=== PATIENT | female | born 2000 | race American Indian/Alaskan Native ===

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

== ENCOUNTER 2019-01-25 21:57 | Emergency (ER) | payer MEDICAID ==
[2019-01-25 22:06] VITALS: BP 147/88
[2019-01-25] MEDS ORDERED: Sodium Chloride 0.9% 10 ML Syringe FLUSH PRN (22:58)
[2019-01-25] MEDS ORDERED: Morphine 2 MG/ML Syringe IVPUSH ONE (22:58)
[2019-01-25] MEDS ORDERED: Sodium Chloride 0.9% 1,000 ML IV ONE (22:58)
[2019-01-25] MEDS ORDERED: Ondansetron 4 MG/2 ML SDV IV ONE (23:31)
[2019-01-25] MEDS ORDERED: Nitrofurantoin Monohydrate/Macrocrystalline 100 MG Cap PO ONE (23:46)
[2019-01-25 23:48] LABS: ANION GAP 14.7; CHLORIDE,CL 106 mmol/L (101-111); SODIUM,NA 138 mmol/L (135-145)
--- NOTE | 2019-01-25 23:50 | EDM.PDOC ---
ED HPI GENERAL MEDICAL PROBLEM - General Chief Complaint: Back Pain or Injury Stated Complaint: BACK Time Seen by Provider: 01/25/19 22:15 Source of Information: Reports: Patient, Family, RN, RN Notes Reviewed History Limitations: Reports: No Limitations - History of Present Illness INITIAL COMMENTS - FREE TEXT/NARRATIVE: Pt to ER with her mother with c/o back pain that radiates into the right flank. Patient states history of scoliosis. She states the pain began yesterday and has progressively gotten worse. She states she is currently having her menses. She denies fever, chills, N/V/D, urinary sx. Patient is crying with pain. Onset: Gradual Treatments COLLISION TECHNICIAN: Reports: Acetaminophen, NSAIDS Middle Back Pain Score (Numeric/FACES): 10 - Related Data Allergies Allergy/AdvReac Type Severity Reaction Status Date / Time No Known Allergies Allergy Verified 01/25/19 22:06 Home Meds: Home Meds Acetaminophen [Tylenol Extra Strength] 1,000 mg 01/25/19 [History] Ibuprofen 800 mg PO PRN 01/25/19 [History] Past Medical History - Past Health History Medical/Surgical History: Denies Medical/Surgical History HEENT History: Reports: Impaired Vision Other HEENT History: GLASSES Cardiovascular History: Reports: None Respiratory History: Reports: None Gastrointestinal History: Reports: None Genitourinary History: Reports: None PRICING CLERK History: Reports: None Other Musculoskeletal History: RIGHT FOOT HALLUX FRACTURE Neurological History: Reports: None Psychiatric History: Reports: None Endocrine/Metabolic History: Reports: None Hematologic History: Reports: None Immunologic History: Reports: None Oncologic (Cancer) History: Reports: None Dermatologic History: Reports: None - Past Surgical History Cardiovascular Surgical History: Reports: None Respiratory Surgical History: Reports: None Female Surgical History: Reports: None Musculoskeletal Surgical History: Reports: Other (See Below) Other Musculoskeletal Surgeries/Procedures:: bilateral hip surgery Social & Family History - Family History Family Medical History: Noncontributory Endocrine/Metabolic: Reports: Diabetes, type II Other Endocrine/Metabolic Family History: Mom and dad - Tobacco Use Smoking Status *Q: Current Every Day Smoker Years of Tobacco use: 2 Packs/Tins Daily: 0.1 Second Hand Smoke Exposure: Yes - Caffeine Use Caffeine Use: Reports: Tea Other Caffeine Use: 2 cans pop /day - Recreational Drug Use Recreational Drug Use: No ED ROS GENERAL - Review of Systems Review Of Systems: ROS reveals no pertinent complaints other than HPI. ED EXAM, RENAL/ - Physical Exam Exam: See Below Exam Limited By: No Limitations General Appearance: Alert, WD/WN, Moderate Distress Eye Exam: Bilateral Eye: EOMI, Normal Inspection Ears: Normal External Exam, Hearing Grossly Normal Nose: Normal Inspection Throat/Mouth: Normal Inspection, Normal Voice, No Airway Compromise Head: Atraumatic, Normocephalic Neck: Normal Inspection, Supple, Non-Tender, Full Range of Motion Respiratory/Chest: No Respiratory Distress, Lungs Clear, Normal Breath Sounds, No Accessory Muscle Use, Chest Non-Tender Cardiovascular: Normal Peripheral Pulses, Regular Rate, Rhythm, No Edema, No Gallop, No JVD, No Murmur, No Rub GI/Abdominal: Normal Bowel Sounds, Soft, Non-Tender (Female) Exam: Deferred Rectal (Female) Exam: Deferred Back Exam: Normal Inspection, CVA Tenderness (R), Decreased Range of Motion Extremities: Normal Inspection, Normal Range of Motion, Non-Tender, Normal Capillary Refill, No Pedal Edema Neurological: Alert, Oriented, CN II-XII Intact, Normal Cognition, Normal Gait, Normal Reflexes, No Motor/Sensory Deficits Psychiatric: Normal Mood, Flat Affect, Tearful Skin Exam: Warm, Dry, Intact, Normal Color, No Rash Lymphatic: No Adenopathy Course - Vital Signs Last Recorded V/S: Last Vital Signs Temp 99.2 F 01/25/19 22:02 Pulse 104 H 01/25/19 22:02 Resp 20 01/25/19 22:02 BP 147/88 H 01/25/19 22:02 Pulse Ox 99 01/25/19 22:02 - Orders/Labs/Meds Orders: Active Orders 24 hr Category Date Time Status Peripheral IV Care [RC] . DIRECTED Care 01/25/19 22:58 Active CULTURE URINE [RM] Stat Lab 01/25/19 22:00 Received Peripheral IV Insertion Adult [OM.PC] Stat Oth 01/25/19 22:58 Ordered Labs: Laboratory Tests 01/25/19 01/25/19 01/25/19 Range/Units 22:00 22:00 23:15 WBC 10.1 H (5.0-10.0) 10^3/uL RBC 4.60 (4.2-5.4) 10^6/uL Hgb 8.3 L (12.0-16.0) g/dL Hct 28.4 L (37.0-47.0) % MCV 61.7 L D (80-100) fL MCH 18.0 L (27.0-34.0) pg MCHC 29.2 L (33.0-35.0) g/dL Plt Count 652 H D (150-450) 10^3/uL Neut % (Auto) 65.0 (42.2-75.2) % Lymph % (Auto) 24.2 (20.5-50.1) % Richardson % (Auto) 6.6 (2-8) % Eos % (Auto) 3.5 H (1.0-3.0) % Baso % (Auto) 0.7 (0.0-1.0) % Sodium (135-145) mmol/L Potassium (3.6-5.0) mmol/L Chloride (101-111) mmol/L Carbon Dioxide (21.0-31.0) mmol/L Anion Gap BUN (7-18) mg/dL Creatinine (0.6-1.3) mg/dL Est Cr Clr Drug Dosing mL/min Estimated GFR (MDRD) BUN/Creatinine Ratio Glucose (74-105) mg/dL Calcium (8.4-10.2) mg/dl Total Bilirubin (0.2-1.0) mg/dL AST (10-42) IU/L ALT (10-60) IU/L Alkaline Phosphatase (42-121) IU/L Total Protein (6.7-8.2) g/dl Albumin (3.2-5.5) g/dl Globulin Albumin/Globulin Ratio Urine Color Red (YELLOW) Urine Appearance Cloudy (CLEAR) Urine pH 5.5 (5.0-9.0) Ur Specific [place] 1.025 (1.005-1.030) Urine Protein >=300 H (NEGATIVE) Urine Glucose (UA) Negative (NEGATIVE) Urine Ketones Trace H (NEGATIVE) Urine Occult Blood Large H (NEGATIVE) Urine Nitrite Positive H (NEGATIVE) Urine Bilirubin Small H (NEGATIVE) Urine Urobilinogen 1.0 (0.2-1.0) mg/dL Ur Leukocyte Esterase Trace H (NEGATIVE) Urine RBC Packed H /HPF Urine WBC 0-5 (0-5/HPF) /HPF Ur Epithelial Cells Few /HPF Urine Bacteria Few (0-FEW/HPF) /HPF Urine Opiates Screen Negative (NEGATIVE) Ur Oxycodone Screen Negative (NEGATIVE) Urine Methadone Screen Negative (NEGATIVE) Ur Barbiturates Screen Negative (NEGATIVE) U Tricyclic Antidepress Negative (NEGATIVE) Ur Phencyclidine Scrn Negative (NEGATIVE) Ur Amphetamine Screen Negative (NEGATIVE) U Methamphetamines Scrn Negative (NEGATIVE) Urine MDMA Screen Negative (NEGATIVE) U Benzodiazepines Scrn Negative (NEGATIVE) Urine Cocaine Screen Negative (NEGATIVE) U Marijuana (THC) Screen Negative (NEGATIVE) 01/25/19 Range/Units 23:15 WBC (5.0-10.0) 10^3/uL RBC (4.2-5.4) 10^6/uL Hgb (12.0-16.0) g/dL Hct (37.0-47.0) % MCV (80-100) fL MCH (27.0-34.0) pg MCHC (33.0-35.0) g/dL Plt Count (150-450) 10^3/uL Neut % (Auto) (42.2-75.2) % Lymph % (Auto) (20.5-50.1) % Richardson % (Auto) (2-8) % Eos % (Auto) (1.0-3.0) % Baso % (Auto) (0.0-1.0) % Sodium 138 (135-145) mmol/L Potassium 3.7 (3.6-5.0) mmol/L Chloride 106 (101-111) mmol/L Carbon Dioxide 21.0 (21.0-31.0) mmol/L Anion Gap 14.7 BUN 16 (7-18) mg/dL Creatinine 0.7 (0.6-1.3) mg/dL Est Cr Clr Drug Dosing 144.48 mL/min Estimated GFR (MDRD) > 60 BUN/Creatinine Ratio 22.85 Glucose 97 (74-105) mg/dL Calcium 9.1 (8.4-10.2) mg/dl Total Bilirubin 0.7 (0.2-1.0) mg/dL AST 34 (10-42) IU/L ALT 34 (10-60) IU/L Alkaline Phosphatase 101 (42-121) IU/L Total Protein 7.9 (6.7-8.2) g/dl Albumin 4.2 (3.2-5.5) g/dl Globulin 3.7 Albumin/Globulin Ratio 1.14 Urine Color (YELLOW) Urine Appearance (CLEAR) Urine pH (5.0-9.0) Ur Specific [place] (1.005-1.030) Urine Protein (NEGATIVE) Urine Glucose (UA) (NEGATIVE) Urine Ketones (NEGATIVE) Urine Occult Blood (NEGATIVE) Urine Nitrite (NEGATIVE) Urine Bilirubin (NEGATIVE) Urine Urobilinogen (0.2-1.0) mg/dL Ur Leukocyte Esterase (NEGATIVE) Urine RBC /HPF Urine WBC (0-5/HPF) /HPF Ur Epithelial Cells /HPF Urine Bacteria (0-FEW/HPF) /HPF Urine Opiates Screen (NEGATIVE) Ur Oxycodone Screen (NEGATIVE) Urine Methadone Screen (NEGATIVE) Ur Barbiturates Screen (NEGATIVE) U Tricyclic Antidepress (NEGATIVE) Ur Phencyclidine Scrn (NEGATIVE) Ur Amphetamine Screen (NEGATIVE) U Methamphetamines Scrn (NEGATIVE) Urine MDMA Screen (NEGATIVE) U Benzodiazepines Scrn (NEGATIVE) Urine Cocaine Screen (NEGATIVE) U Marijuana (THC) Screen (NEGATIVE) Meds: Medications Discontinued Medications Generic Name Dose Route Start Last Admin Trade Name Freq PRN Reason Stop Dose Admin Sodium Chloride 1,000 mls @ 999 mls/hr 01/25/19 22:58 01/25/19 23:18 Normal Saline IV 01/25/19 23:58 999 mls/hr .BOLUS ONE Administration Morphine Sulfate 2 mg 01/25/19 22:58 01/25/19 23:18 Morphine IVPUSH 01/25/19 22:59 2 mg ONETIME ONE Administration Nitrofurantoin Macrocrystals 100 mg 01/25/19 23:46 01/26/19 00:04 Macrobid PO 01/25/19 23:47 100 mg ONETIME ONE Administration Ondansetron HCl 4 mg 01/25/19 23:31 01/25/19 23:36 Zofran IV 01/25/19 23:32 4 mg ONETIME ONE Administration Sodium Chloride 10 ml 01/25/19 22:58 01/25/19 23:18 Saline Flush FLUSH 10 ml ASDIRECTED PRN Administration Keep Vein Open - Re-Assessments/Exams Free Text/Narrative Re-Assessment/Exam: 01/26/19 01:54 Patient states pain improved after pain medication. Continues with dull ache. Departure - Departure Time of Disposition: 23:55 Disposition: Home, Self-Care 01 Condition: Fair Clinical Impression: UTI (urinary tract infection) Qualifiers: Urinary tract infection type: acute cystitis Hematuria presence: with hematuria Qualified Code(s): N30.01 - Acute cystitis with hematuria - Discharge Information *PRESCRIPTION DRUG MONITORING PROGRAM REVIEWED*: No *COPY OF PRESCRIPTION DRUG MONITORING REPORT IN PATIENT HARSHAD: No Instructions: Urinary Tract Infection, Adult, [id number] Forms: ED Department Discharge Additional Instructions: RX: Macrobid May use Tylenol and/or Ibuprofen as directed for pain Drink plenty of water and cranberry juice Follow up with your primary care facility - My Orders Last 24 Hours: My Active Orders 01/25/19 22:00 CULTURE URINE [RM] Stat 01/25/19 22:58 Peripheral IV Care [RC] . DIRECTED Peripheral IV Insertion Adult [OM.PC] Stat - Assessment/Plan Last 24 Hours: My Active Orders 01/25/19 22:00 CULTURE URINE [RM] Stat 01/25/19 22:58 Peripheral IV Care [RC] . DIRECTED Peripheral IV Insertion Adult [OM.PC] Stat
== END 2019-01-26 00:08 | disposition home or self-care (01) ==
LOC: DL.ED 21:57
DX: N30.01 Acute cystitis with hematuria (principal); F17.210 Nicotine dependence, cigarettes, uncomplicated
CPT/HCPCS: 36415; 80053; 80305; 81001; 85025; 87086; 96374; 96375; 99283; A9270; J2270; J2405; J7030

== ENCOUNTER 2021-06-07 19:49 | Emergency (ER) | payer SELFPAY ==
[2021-06-07 20:58] VITALS: BP 160/98; PULSE 104
--- NOTE | 2021-06-07 22:10 | EDM.PDOC ---
ED HPI GENERAL MEDICAL PROBLEM - General Chief Complaint: ENT Problem Stated Complaint: THROAT AND CHEST HURT AND SINUS PRESSURE Time Seen by Provider: 06/07/21 21:45 Source of Information: Reports: Patient, RN History Limitations: Reports: No Limitations - History of Present Illness INITIAL COMMENTS - FREE TEXT/NARRATIVE: ED with c/o congestion cough sore throat x 2 days. Mom sick with similar for past week. Unknown if COVID exposure. Possible fever earlier, took tylenol. Loss of taste and smell this am - Related Data Allergies Allergy/AdvReac Type Severity Reaction Status Date / Time No Known Allergies Allergy Verified 06/07/21 20:59 Home Meds: Home Meds Acetaminophen [Tylenol Extra Strength] 1,000 mg 01/25/19 [History] RX: Ibuprofen 800 mg PO PRN 01/25/19 [History] Past Medical History - Past Health History Medical/Surgical History: Denies Medical/Surgical History HEENT History: Reports: Impaired Vision Other HEENT History: GLASSES Cardiovascular History: Reports: None Respiratory History: Reports: None Gastrointestinal History: Reports: None Genitourinary History: Reports: None PHYSICAL THERAPIST TECHNICIAN History: Reports: None Other Musculoskeletal History: RIGHT FOOT HALLUX FRACTURE Neurological History: Reports: None Psychiatric History: Reports: None Endocrine/Metabolic History: Reports: None Hematologic History: Reports: None Immunologic History: Reports: None Oncologic (Cancer) History: Reports: None Dermatologic History: Reports: None - Past Surgical History HEENT Surgical History: Reports: Tonsillectomy Other HEENT Surgeries/Procedures: ADENOIDECTOMY Cardiovascular Surgical History: Reports: None Respiratory Surgical History: Reports: None Female Surgical History: Reports: None Musculoskeletal Surgical History: Reports: Other (See Below) Other Musculoskeletal Surgeries/Procedures:: bilateral hip surgery Social & Family History - Family History Family Medical History: No Pertinent Family History Endocrine/Metabolic: Reports: Diabetes, type II Other Endocrine/Metabolic Family History: Mom and dad - Tobacco Use Tobacco Use Status *Q: Never Tobacco User Second Hand Smoke Exposure: No - Caffeine Use Caffeine Use: Reports: Energy Drinks Other Caffeine Use: 2 cans pop /day - Recreational Drug Use Recreational Drug Use: No ED ROS ENT - Review of Systems Review Of Systems: Comprehensive ROS is negative, except as noted in HPI. ED EXAM, ENT - Physical Exam Exam: See Below Exam Limited By: No Limitations General Appearance: Alert, Mild Distress Eye Exam: Bilateral Eye: EOMI Ears: Normal External Exam, Hearing Grossly Normal, Normal TMs. No: TM Erythema Nose: Normal Inspection Mouth/Throat: Normal Inspection Head: Atraumatic, Normocephalic Neck: Normal Inspection, Full Range of Motion Respiratory/Chest: No Respiratory Distress, Lungs Clear, Normal Breath Sounds Cardiovascular: Normal Peripheral Pulses, Regular Rate, Rhythm GI/Abdominal: Normal Bowel Sounds, Soft Extremities: Normal Range of Motion Psychiatric: Flat Affect Skin: Warm, Dry, Intact, Normal Color Course - Vital Signs Last Recorded V/S: Last Vital Signs Temp 98.4 F 06/07/21 20:57 Pulse 104 H 06/07/21 20:57 Resp 18 06/07/21 20:57 BP 160/98 H 06/07/21 20:57 Pulse Ox 100 06/07/21 20:57 - Orders/Labs/Meds Orders: Active Orders 24 hr Category Date Time Status CULTURE STREP A CONFIRMATION [RM] Stat Lab 06/07/21 20:35 Results STREP SCRN A RAPID W CULT CONF [RM] Stat Lab 06/07/21 20:35 Results Labs: Laboratory Tests 06/07/21 Range/Units 20:35 SARS-CoV-2 RNA (GAMALIEL) Positive H (NEGATIVE) Departure - Departure Time of Disposition: 22:04 Disposition: Home, Self-Care 01 Condition: Good Clinical Impression: COVID-19 - Discharge Information *PRESCRIPTION DRUG MONITORING PROGRAM REVIEWED*: No *COPY OF PRESCRIPTION DRUG MONITORING REPORT IN PATIENT HARSHAD: No Instructions: What You Should Know About COVID-19 to Protect Yourself and Others - CDC, COVID-19: How to Protect Yourself and Others - CDC, COVID-19: Quarantine vs. Isolation - [facility] (09/12/2020) Forms: ED Department Discharge Additional Instructions: isolate 14 days from onset of symptoms good handwashing urgent follow up if severe breathing difficulty symptoms management with tylenol 500mg every 4 hours as needed for fever or discomfort robitussin or muccinex per label instruction for congestion or cough fluids diet as tolerated Sepsis Event Note (ED) - Evaluation Sepsis Screening Result: No Definite Risk - Focused Exam Vital Signs: Vital Signs Temp Pulse Resp BP Pulse Ox 06/07/21 20:57 98.4 F 104 H 18 160/98 H 100 - My Orders Last 24 Hours: My Active Orders 06/07/21 20:35 CULTURE STREP A CONFIRMATION [RM] Stat STREP SCRN A RAPID W CULT CONF [RM] Stat - Assessment/Plan Last 24 Hours: My Active Orders 06/07/21 20:35 CULTURE STREP A CONFIRMATION [RM] Stat STREP SCRN A RAPID W CULT CONF [RM] Stat
== END 2021-06-07 22:31 | disposition home or self-care (01) ==
LOC: DL.ED 19:49
DX: U07.1 COVID-19 (principal)
CPT/HCPCS: 87081; 87430; 99283; U0002

== ENCOUNTER 2024-10-09 12:50 | Emergency (ER) | payer OTHER ==
[2024-10-09 14:02] LABS: BASOPHILS PERCENT AUTO 0.6 % (0.0-1.0); EOSINOPHILS PERCENT AUTO 6.4 % (1.0-3.0); HEMATOCRIT 26.1 % (37.0-47.0); LYMPHOCYTES PERCENT AUTO 24.4 % (20.5-50.1); MEAN CORPUSCULAR HEMOGLOBIN 15.5 pg (27.0-34.0); MEAN CORPUSCULAR HGB CONC 26.4 g/dL (33.0-35.0); MEAN CORPUSCULAR VOLUME 58.5 fL (80-100); MONOCYTES PERCENT AUTO 5.6 % (2-8); PLATELET COUNT,PLT 628 10^3/uL (150-450); RED BLOOD CELL COUNT 4.46 10^6/uL (4.2-5.4); WHITE BLOOD CELL COUNT,WBC 12.4 10^3/uL (5.0-10.0)
[2024-10-09 14:06] LABS: APPEARANCE,URINE SLIGHTLY CLOUDY (CLEAR); BILIRUBIN,URINE NEGATIVE (NEGATIVE); COLOR,URINE YELLOW (YELLOW); GLUCOSE,URINE NEGATIVE (NEGATIVE); KETONES,URINE NEGATIVE (NEGATIVE); LEUKOCYTE ESTERASE,URINE NEGATIVE (NEGATIVE); NITRITE,URINE NEGATIVE (NEGATIVE); OCCULT BLOOD,URINE NEGATIVE (NEGATIVE); PH,URINE 5.5 (5.0-9.0); PROTEIN,URINE NEGATIVE (NEGATIVE); UROBILINOGEN,URINE 0.2 mg/dL (0.2-1.0)
[2024-10-09 14:17] LABS: HEMOGLOBIN 6.9 g/dL (12.0-16.0)
[2024-10-09 14:23] LABS: HCG QUALITATIVE,SERUM NEGATIVE (NEGATIVE)
[2024-10-09 14:24] LABS: LACTIC ACID 0.8 mmol/L (0.4-2.0)
[2024-10-09 14:31] LABS: A/G RATIO 0.9; ALANINE AMINOTRANSFERASE,ALT 42 U/L (14-59); ALBUMIN 3.9 g/dL (3.4-5.0); ALKALINE PHOSPHATASE 112 U/L (46-116); ANION GAP 12.7 mEq/L (7-13); ASPARTATE AMNIOTRANSFERASE,AST 23 U/L (15-37); BILIRUBIN TOTAL 0.9 mg/dL (0.2-1.0); BLOOD UREA NITROGEN,BUN 11 mg/dL (7-18); BUN/CREATININE RATIO 15.7 (No establ ref range); CALCIUM 9.1 mg/dL (8.5-10.1); CARBON DIOXIDE,CO2 28 mmol/L (21-32); CHLORIDE,CL 103 mmol/L (98-107); GLUCOSE RANDOM 94 mg/dL (70-99); LIPASE 17 U/L (16-77); POTASSIUM,K 3.7 mmol/L (3.5-5.1); PROTEIN TOTAL,TP 8.2 g/dL (6.4-8.2); SODIUM,NA 140 mmol/L (136-145)
[2024-10-09 14:33] LABS: C-REACTIVE PROTEIN < 0.50 ng/dL (<=0.50); ESTIMATED GFR 123 mL/min (>=60)
[2024-10-09] MEDS ORDERED: cefTRIAXone 2 GM Vial ONE (15:26)
[2024-10-09] MEDS: cefTRIAXone 2 GM in Sodium Chloride 0.9% 100 ML IV ONE (15:31)
[2024-10-09 18:46] VITALS: BP 147/73
[2024-10-09 18:52] VITALS: PULSE 87
== END 2024-10-09 18:47 ==
LOC: DL.ED 12:50
DX: R10.33 Periumbilical pain (principal); Z88.8 Allergy status to other drugs, medicaments and biological substances
CPT/HCPCS: 36415; 36430; 80053; 81003; 83605; 83690; 83735; 84703; 85025; 86140; 86850; 86900; 86901; 86920; 86922; 87040; 96365; 99285-25; J0696; P9016

== ENCOUNTER 2024-11-06 23:44 | Emergency (ER) | payer OTHER ==
[2024-11-07 00:34] LABS: BASOPHILS PERCENT AUTO 0.5 % (0.0-1.0); EOSINOPHILS PERCENT AUTO 3.3 % (1.0-3.0); HEMATOCRIT 32.6 % (37.0-47.0); HEMOGLOBIN 9.4 g/dL (12.0-16.0); LYMPHOCYTES PERCENT AUTO 22.3 % (20.5-50.1); MEAN CORPUSCULAR HGB CONC 28.8 g/dL (33.0-35.0); MEAN CORPUSCULAR VOLUME 65.9 fL (80-100); MONOCYTES PERCENT AUTO 6.6 % (2-8); NEUTROPHILS PERCENT AUTO 67.3 % (42.2-75.2); PLATELET COUNT,PLT 581 10^3/uL (150-450); RED BLOOD CELL COUNT 4.95 10^6/uL (4.2-5.4)
[2024-11-07 00:50] LABS: ALANINE AMINOTRANSFERASE,ALT 53 U/L (14-59); ALKALINE PHOSPHATASE 121 U/L (46-116); ANION GAP 11.1 mEq/L (7-13); ASPARTATE AMNIOTRANSFERASE,AST 23 U/L (15-37); BLOOD UREA NITROGEN,BUN 11 mg/dL (7-18); BUN/CREATININE RATIO 15.7 (No establ ref range); CALCIUM 9.3 mg/dL (8.5-10.1); CARBON DIOXIDE,CO2 28 mmol/L (21-32); CHLORIDE,CL 103 mmol/L (98-107); ESTIMATED GFR 123 mL/min (>=60); GLUCOSE RANDOM 110 mg/dL (70-99); POTASSIUM,K 4.1 mmol/L (3.5-5.1); PROTEIN TOTAL,TP 8.2 g/dL (6.4-8.2); SODIUM,NA 138 mmol/L (136-145)
[2024-11-07 00:54] LABS: HCG QUALITATIVE,SERUM NEGATIVE (NEGATIVE)
[2024-11-07 02:39] VITALS: BP 129/80; PULSE 78
== END 2024-11-07 02:57 | disposition home or self-care (01) ==
LOC: DL.ED 23:44
DX: D64.9 Anemia, unspecified (principal); Z90.89 Acquired absence of other organs; Z79.899 Other long term (current) drug therapy
CPT/HCPCS: 36415; 80053; 83735; 84703; 85025; 93005; 99284